=== PATIENT | female | born 1985 | race Caucasian/White ===

== ENCOUNTER 2017-09-07 13:25 | Inpatient (IN) | payer OTHER ==
[~2017-09-07] VITALS: Ht 157.5 cm; Wt 71.7 kg
[~2017-09-07 13:25] MED LIST: MINERAL OIL 30 ML UDC PO ONE
[2017-09-07] MEDS ORDERED: LR 1,000 ML IV ONE (14:11)
[2017-09-07] MEDS ORDERED: OXYTOCIN/0.9 % SODIUM CHLORIDE 1,000 ML IV SCH (14:11)
[2017-09-07] MEDS ORDERED: TERBUTALINE SULFATE 1 MG/ML VIAL SUBCUT ONE (14:15)
[2017-09-07] MEDS ORDERED: NALBUPHINE HCL 10 MG/ML AMP IVP PRN (14:15)
[2017-09-07] MEDS: LR 1,000 ML IV SCH (17:05)
[2017-09-07 18:31] LABS: BASOPHILS % (AUTO) 0.3 % (0.0-2.0); EOSINOPHILS % (AUTO) 0.2 % (0.0-4.0); HEMATOCRIT 39.5 % (36-48); HEMOGLOBIN 13.5 g/dL (12.0-16.0); LYMPHOCYTES # (AUTO) 1.5 K/uL (1.0-5.5); LYMPHOCYTES % (AUTO) 14.5 % (20.5-51.5); MEAN CORPUSCULAR HEMOGLOBIN 32 pg (27-31); MEAN CORPUSCULAR HGB CONC 34 % (32-36); MEAN CORPUSCULAR VOLUME 94 fL (79.0-98.0); MONOCYTES # (AUTO) 0.4 K/uL (0.0-1.0); NEUTROPHILS # (AUTO) 8.6 K/uL (1.8-7.7); PLATELET COUNT (AUTO) 168 K/uL (130-430); RED BLOOD CELL COUNT(AUTO) 4.19 MIL/uL (4.2-6.2); RED CELL DISTRIBUTION WIDTH 12.6 % (9.0-15.0); WHITE BLOOD COUNT (AUTO) 10.5 K/uL (4.8-10.8)
[2017-09-07 19:01] VITALS: BP_SYST 134
[2017-09-07] MEDS ORDERED: fentaNYL CITRATE/PF 100 MCG/2 ML AMP ONE (23:38)
[2017-09-07] MEDS ORDERED: ROPIVACAINE 0.2% 100 ML ONE (23:39)
[2017-09-08] MEDS: LR 1,000 ML IV SCH ×2 (00:01→01:57)
[2017-09-08] MEDS ORDERED: LR 500 ML IV ONE (00:15)
[2017-09-08] MEDS ORDERED: FENT2mCg/mL-ROPIVA0.2%/NS EPID 150 ML EP SCH (00:15)
[2017-09-08] MEDS ORDERED: OXYTOCIN/0.9 % SODIUM CHLORIDE 1,000 ML IV ONE (04:34)
[2017-09-08] MEDS ORDERED: OXYTOCIN/0.9 % SODIUM CHLORIDE 1,000 ML IV SCH (04:34)
[2017-09-08] MEDS ORDERED: LANOLIN 7 GM OINT. TP PRN (04:45)
[2017-09-08] MEDS ORDERED: OXYCODONE/ACETAMINOPHEN 5-325 TABLET PO PRN ×2 (04:45)
[2017-09-08] MEDS ORDERED: ACETAMINOPHEN 325 MG TABLET PO PRN (04:45)
[2017-09-08] MEDS ORDERED: ANUSOL 1 EA SUPP.RECT (PREPARATION H) RC PRN (04:45)
[2017-09-08] MEDS ORDERED: MEASLES,MUMPS&RUBELLA VACC/PF 12500 UNIT/0.5 ML VIAL SUBQ PRN (04:45)
[2017-09-08] MEDS ORDERED: RHO(D) IMMUNE GLOBULIN/MALTOSE 1500 UNITS/1.3 ML (WINHRO) IM PRN (04:45)
[2017-09-08] MEDS ORDERED: DERMOPLAST SPRAY TP PRN (04:45)
[2017-09-08] MEDS ORDERED: GLYCERIN/WITCH HAZEL (TUCKS PADS) TP PRN (04:45)
[2017-09-08] MEDS ORDERED: SENNOSIDES/DOCUSATE SODIUM 1 TAB TABLET(SENOKOT-S) PO PRN (04:45)
[2017-09-08] MEDS ORDERED: METHYLERGONOVINE MALEATE 0.2 MG TABLET PO PRN (04:45)
[2017-09-08] MEDS ORDERED: DIPH-TET-PERTUS Vaccine 0.5 ML VIAL (ADACEL) I.M. PRN (04:45)
[2017-09-08] MEDS ORDERED: HYDROCORTISONE 0.5%, 28.35 GM TOPICAL CREAM TP PRN (04:45)
[2017-09-08] MEDS: DOCUSATE SODIUM 100 MG CAPSULE PO PRN (06:35)
[2017-09-08] MEDS: IBUPROFEN 600 MG TABLET PO SCH ×3 (06:35→17:46)
[2017-09-08] MEDS ORDERED: TEMAZEPAM 15 MG CAPSULE PO PRN (21:00)
[2017-09-09 07:23] LABS: HEMATOCRIT 39.5 % (36-48); HEMOGLOBIN 13.4 g/dL (12.0-16.0)
[2017-09-09] MEDS: IBUPROFEN 600 MG TABLET PO SCH ×2 (12:35)
[2017-09-09] MEDS: DOCUSATE SODIUM 100 MG CAPSULE PO PRN (12:35)
== END 2017-09-09 15:00 | disposition home or self-care (01) | DRG 775 ==
LOC: SPU 13:25
PROVIDERS: ADMIT Obstetrics & Gynecology; ATTEND Obstetrics & Gynecology
PROC: 10E0XZZ Delivery of Products of Conception, External Approach (ICD-10-PCS; principal; 2017-09-08)
PROC: 0KQM0ZZ Repair Perineum Muscle, Open Approach (ICD-10-PCS; 2017-09-08)
PROC: 3E0S3BZ Introduction of Anesthetic Agent into Epidural Space, Percutaneous Approach (ICD-10-PCS; 2017-09-08)
PROC: 00HU33Z Insertion of Infusion Device into Spinal Canal, Percutaneous Approach (ICD-10-PCS; 2017-09-08)
DX: O13.4 Gestational [pregnancy-induced] hypertension without significant proteinuria, complicating childbirth (principal); O70.1 Second degree perineal laceration during delivery; Z3A.39 39 weeks gestation of pregnancy; Z37.0 Single live birth
CPT/HCPCS: 36415; 85018-TC; 85025; 86592; 86886; 86900; 86901; 94760; J2590; J2795; J3010; J7120